=== PATIENT | male | born 1945 | race Caucasian/White ===

== ENCOUNTER → 2024-06-04 12:16 | Outpatient (CLI) | payer MEDICARE, OTHER, SELFPAY ==
--- NOTE | 2024-06-16 23:51 | DI.NM.S_ITS ---
DATE OF SERVICE: 06/04/2024 NUCLEAR CARDIOLOGY MYOCARDIAL PERFUSION STUDY PROCEDURE PERFORMED: Pharmacologic vasodilator stress and rest myocardial perfusion imaging with gating to assess ejection fraction and regional wall motion. ORDERING PROVIDER: PORTIA Ayoub. INDICATIONS: The patient is a 78-year-old hypertensive male with palpitations and left bundle-branch block. CARDIAC STRESS: Per protocol, 0.4 mg of regadenoson was infused with a normal hemodynamic response. He had no chest discomfort or other anginal symptoms. His resting ECG shows a left bundle-branch block with occasional PAC. With stress, there are no significant ST-segment shifts although the presence of the left bundle-branch block makes ST- segment analysis challenging. He continued to have occasional PACs and PVCs, but no complex ectopy. Per protocol, 26.2 millicuries of technetium-99m Myoview was injected and he was imaged 15 minutes later using a gated SPECT acquisition protocol. He had previously been injected with 26.4 millicuries of technetium-99m Myoview while at rest 13 days prior and had been imaged 15 minutes after that injection, again using a gated SPECT acquisition protocol. FINDINGS: 1. Raw data. There is fairly good myocardial tracer uptake. The lung/heart ratio is borderline elevated at 0.41, which can be a sign of pulmonary congestion but is nonspecific, particularly with the use of vasodilators stress. The TID ratio was normal at 0.97. 2. Quantitated gated SPECT: The post-stress ejection fraction is estimated at 65% with a mild dyssynchronous contraction pattern, more notable near the apex but without clear areas of hypokinesis. The resting ejection fraction is calculated to be 52% although visually appears very similar to that of the post-stress images with a similar contraction pattern. There is mild left ventricular enlargement with a resting end-diastolic volume of 136 mL. 3. Myocardial perfusion imaging: Post-stress supine images show a fairly normal myocardial perfusion pattern except a mild defect in the apex, extending into the distal inferior wall, but this defect essentially resolves on the prone images, suggesting it likely reflects attenuation artifact. There are no other concerning perfusion defects. The resting images show an identical perfusion pattern to that of the post-stress supine images without any areas of improvement. IMPRESSION: 1. Probable normal myocardial perfusion study. 2. Mild fixed apical and distal inferior perfusion defect that essentially resolves on prone imaging, and thus likely representing attenuation artifact although a previous apical infarction cannot be entirely excluded. There is no reversibility to suggest any myocardial ischemia, . 3. Normal left ventricular systolic function although with a dyssynchronous contraction pattern likely due to his conduction abnormality. Left ventricular volumes are mildly increased. 4. No angina or ECG evidence of ischemia although the underlying LBBB with reduces sensitivity and specificity. Occasional PACs and PVCs are noted, but without complex ectopy. Rome Carney - RS/brant/NIRAVB doc#: [id number]/job#: [id number] dd: 06/16/2024 16:57:00 dt: 06/16/2024 18:47:00 DICTATING MD/COPIES TO: Rahul Mina MD; Yolande Saucedo M.D. COPIES MNE: AGATA;
== END ==
PROVIDERS: PCP Nurse Practitioner Family; Referring Provider Nurse Practitioner Family; Visit Provider Nurse Practitioner Family
DX: I49.9 Cardiac arrhythmia, unspecified (principal); I70.0 Atherosclerosis of aorta; I77.819 Aortic ectasia, unspecified site; I44.7 Left bundle-branch block, unspecified; E78.5 Hyperlipidemia, unspecified; I10 Essential (primary) hypertension
CPT/HCPCS: 78452; 93017; A9502; J2785